=== PATIENT | male | born 1960 ===

== ENCOUNTER 2023-12-16 09:31 | Outpatient (REF) | payer MEDICAID, SELFPAY ==
--- NOTE | ~2023-12-16 | XR_ITS ---
EXAMINATION: XR KNEE, RIGHT CLINICAL INFORMATION: Pain in right knee. COMPARISON: None available. TECHNIQUE: Four views of the right knee. FINDINGS: Extensive atherosclerotic vascular calcifications. [id number] joint effusion. Mild narrowing of the lateral compartment. Tiny posterior patellar spurs. XR/XR knee RT 3V IMPRESSION: [id number] joint effusion. Mild degenerative changes.
== END 2023-12-16 09:32 | disposition home or self-care (01) ==
LOC: HO.HOSX 09:31
PROVIDERS: Visit Provider Orthopaedic Surgery
DX: M25.561 Pain in right knee (principal); Z79.899 Other long term (current) drug therapy
CPT/HCPCS: 73562; 99202

== ENCOUNTER 2023-12-16 12:57 | Outpatient (AMB) | payer MEDICAID, SELFPAY ==
--- NOTE | 2023-12-16 13:16 | A.OFFVIS_ITS ---
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 The patient did undergo right knee arthroscopic surgery in 2017. He got very good relief from that surgery initially. Patient states that he re-injured his knee approximately 1 year ago. He twisted his knee and had acute onset of pain. Since that time his symptoms have gotten worse in spite of continued non operative treatments. He did have 1 cortisone injection given into his right knee which gave him minimal relief. He has also done physical therapy exercises which aggravated his pain. The patient states that his right knee will give out several times per day. The patient also reports intermittent discomfort in his left knee. He states that at this point is left knee discomfort is tolerable to him. Allergies morphine Allergy (Intermediate, Verified 12/16/23 13:28) rapid Penicillins Allergy (Mild, Verified 12/16/23 13:28) Hives Medication List - Last Reconciled 12/16/23 by Bubba Escamilla MD [id number] ala 50-200-25 mg (Biktarvy) 1 tab PO DAILY empagliflozin (Jardiance) 25 mg PO DAILY empagliflozin (Jardiance) 10 mg PO DAILY fluconazole mg PO gabapentin mg PO glipizide ER 5 mg PO DAILY lisinopril 5 mg PO DAILY triamcinolone acetonide 0.025% topical valacyclovir 500 mg PO DAILY COUNTS INCLUDE 234 BEDS AT THE [facility] Surgical History Hx of heart surgery History of back surgery H/O shoulder surgery H/O right knee surgery (~2016) Social History Patient Tobacco Use Status: Never used Tobacco Current occupational status: unemployed Physical Exam Vital Signs: BMI result Body Mass Index 26.5 Const Other: Well-nourished well-developed very friendly male awake alert and oriented x3 in no acute distress Extrem Other: Bilateral lower extremity examination shows good capillary refill, no skin lesions noted, normal sensation light touch Right knee examination shows a minimal effusion, minimal crepitus with range of motion, tenderness along his medial joint line, positive Filomena's test, no instability Results Reviewed Results Reviewed: MRI of the patient's right knee taken at [facility] on 11/05/2023 shows a tear of the medial meniscus, no acute bony abnormalities Standing full weight-bearing x-rays of the patient's right knee show minimal joint space narrowing Assessment & Plan Assessment & Plan (1) Right knee pain: Code(s): M25.561 - Pain in right knee Plan Mr. Barnes presents with progressively worsening right knee pain mechanical symptoms due to a tear of his medial meniscus. I had a lengthy discussion with the patient regarding the treatment options. At this he failed continued non operative treatments. The risks and benefits of right knee arthroscopic surgery were discussed at length with the patient. The patient wishes to proceed with surgery. Surgery will most likely involve right knee diagnostic arthroscopy with arthroscopic partial medial meniscectomy. The patient does understand that he may not get 100% relief of his symptoms depending on the severity of his degenerative changes. The patient will be scheduled for next available date. He will follow-up as instructed. Feel free to call me at any time should questions regarding his orthopedic management arise. Thank you very much for asking me to see this very friendly gentleman. I spent 22 minutes in reviewing the patient's records and imaging studies, seeing the patient and documenting in the medical record. Orders: Orders XR knee RT 3V Today M25.561 - Pain in right knee Coding Level of Care Code New Pt Level 2 (83703) Diagnoses Right knee pain M25.561
[2023-12-16 13:23] VITALS: BMI 26.5
== END 2023-12-16 13:52 | disposition home or self-care (01) ==
PROVIDERS: PCP Family Medicine; Visit Provider Orthopaedic Surgery
DX: M25.561 Pain in right knee (principal)
CPT/HCPCS: 99202

== ENCOUNTER → 2024-01-11 07:30 | Outpatient (BNV) | payer MEDICAID, SELFPAY | PROVIDERS: PCP Family Medicine; Visit Provider Orthopaedic Surgery | DX: S83.241A Other tear of medial meniscus, current injury, right knee, initial encounter (principal); S83.281A Other tear of lateral meniscus, current injury, right knee, initial encounter | CPT/HCPCS: 29880 ==

== ENCOUNTER 2024-01-11 09:48 | Day surgery (SDC) | payer MEDICAID, SELFPAY ==
[2024-01-07 11:02] VITALS: BMI 26.5
--- NOTE | 2024-01-07 14:13 | P.CONAN_ITS ---
HPI - Anesthesia Eval Consult details Narrative: 63yo M for Right Knee Arthroscopy with partial medial meniscectomy Medically optimized per [facility] clinic note Follows [facility] Cardiology. Last office visit 05/2023. s/p CABG 2016. Hx MO with stents 2007 and 2011. Stable at 05/2023 officie visit, 1 year f/u. [facility] Active Problems Active Problems: All Active Problems Right knee pain (Acute) Past Medical History Medical History Anxiety and depression Osteoarthritis Elevated cholesterol HIV (human immunodeficiency virus infection) Myocardial infarction CAD (coronary artery disease) Diabetes HTN (hypertension) Surgical History Surgical History Hx of heart artery stent History of surgery History of lumbar fusion H/O colonoscopy History of total left knee replacement Hx of heart surgery History of back surgery H/O shoulder surgery H/O right knee surgery (~2016) Social History Social History Patient Tobacco Use Status: Former Tobacco user Quit Date: 6 years Tobacco use type: Cigarette Use of substances other than those prescribed or required for medical reasons: No Are you DNR?: No Advance Directives: No Advance Directives Information Provided: Yes Current occupational status: unemployed Meds Allergies Allergy/AdvReac Type Severity Reaction Status Date / Time azithromycin Allergy Intermediate Gastrointestinal Verified 01/07/24 10:53 Upset morphine Allergy Intermediate rapid Verified 12/16/23 13:28 Penicillins Allergy Intermediate Hives Verified 01/07/24 10:53 Active Medications: Current Medications Clindamycin Phosphate (Cleocin) 900 mg in 50 mls @ 50 mls/hr IV PREOP ONE Stop: 01/11/24 06:23 Home Medications ?Medication ?Instructions ?Recorded ?Confirmed ?Last Taken ?Type bictegravir 50 mg-emtricitabine 1 tab PO DAILY 12/16/23 01/07/24 Unknown History 200 mg-tenofovir alafenam 25 mg tablet (Biktarvy) empagliflozin 25 mg tablet 25 mg PO DAILY 12/16/23 01/07/24 01/08/24 History (Jardiance) glipizide 5 mg tablet, extended 5 mg PO DAILY 12/16/23 01/07/24 Unknown History release 24 hr lisinopril 5 mg tablet 5 mg PO BEDTIME 12/16/23 01/07/24 Unknown History triamcinolone acetonide 0.025 % 1 appl topical DAILY 12/16/23 01/07/24 Unknown History topical ointment valacyclovir 500 mg tablet 500 mg PO DAILY 12/16/23 01/11/24 Unknown History omeprazole 20 mg capsule,delayed 20 mg PO BID 01/07/24 01/07/24 Unknown History release pravastatin 80 mg tablet 80 mg PO DAILY 01/07/24 01/07/24 Unknown History Exam Height,Weight and Vital Signs: Height 5 ft 10 in Weight 83.915 kg Pertinent Lab Results Pertinent Lab Results: CBC and BMP 12/2023 from outside facility WNL Narrative Narrative: EKG 12/2023 SB @ 55 LAD Assessment and Plan Assessment Anesthesia Assessment: Chart Reviewed
[2024-01-11] VITALS (7 sets, daily range): BP systolic 93–132; BP diastolic 51–80; PULSE 48–57; RESP 14–18; TEMP 36.1–36.3; O2SAT 98–100; BMI 27.1
--- NOTE | 2024-01-11 07:16 | P.CONAN_ITS ---
[facility] Active Problems Active Problems: All Active Problems Right knee pain (Acute) Past Medical History Medical History Anxiety and depression Osteoarthritis Elevated cholesterol HIV (human immunodeficiency virus infection) Myocardial infarction CAD (coronary artery disease) Diabetes HTN (hypertension) Functional capacity: independent ambulation Family History Family history of problems with anesthesia: No Surgical History Surgical History Hx of heart artery stent History of surgery History of lumbar fusion H/O colonoscopy History of total left knee replacement Hx of heart surgery History of back surgery H/O shoulder surgery H/O right knee surgery (~2016) Social History Social History Patient Tobacco Use Status: Former Tobacco user Quit Date: 6 years Tobacco use type: Cigarette Use of substances other than those prescribed or required for medical reasons: No Are you DNR?: No Current occupational status: unemployed Meds Allergies Allergy/AdvReac Type Severity Reaction Status Date / Time azithromycin Allergy Intermediate Gastrointestinal Verified 01/07/24 10:53 Upset morphine Allergy Intermediate rapid Verified 12/16/23 13:28 Penicillins Allergy Intermediate Hives Verified 01/07/24 10:53 Active Medications: Current Medications Lactated Ringer's (Lr) 1,000 mls @ 100 mls/hr IVCONT .Q10H LOULOU Home Medications ?Medication ?Instructions ?Recorded ?Confirmed ?Last Taken ?Type bictegravir 50 mg-emtricitabine 1 tab PO DAILY 12/16/23 01/07/24 Unknown History 200 mg-tenofovir alafenam 25 mg tablet (Biktarvy) empagliflozin 25 mg tablet 25 mg PO DAILY 12/16/23 01/07/24 01/08/24 History (Jardiance) glipizide 5 mg tablet, extended 5 mg PO DAILY 12/16/23 01/07/24 Unknown History release 24 hr lisinopril 5 mg tablet 5 mg PO BEDTIME 12/16/23 01/07/24 Unknown History triamcinolone acetonide 0.025 % 1 appl topical DAILY 12/16/23 01/07/24 Unknown History topical ointment valacyclovir 500 mg tablet 500 mg PO DAILY 12/16/23 01/11/24 Unknown History omeprazole 20 mg capsule,delayed 20 mg PO BID 01/07/24 01/07/24 Unknown History release pravastatin 80 mg tablet 80 mg PO DAILY 01/07/24 01/07/24 Unknown History Exam Height,Weight and Vital Signs: Height 5 ft 10 in Weight 85.729 kg Last Vital Signs Temp 96.9 F 01/11/24 06:09 Resp 18 01/11/24 06:09 BP 132/80 01/11/24 06:09 Pulse Ox 98 01/11/24 06:09 O2 Del Method Room Air 01/11/24 06:09 Airway Mallampati Class: II TM Dist: >3cm Neck ROM: Full Heart: RRR Lungs: CTA Assessment and Plan Assessment Anesthesia Assessment: Anesthesia Plan Discussed Final Anesthetic Review Family History of Problems with Anesthesia: No ASA Class: III Final Preanesthetic Review: Meds/Allgs Chart Reviewed, Consent Obtained/Reviewed and Anes Risks/Benef Reviewed Patient Risk: Intermediate Procedure Risk: Low Anesthetic Plan Anesthetic Plan: GA Disposition: Standard PACU
[2024-01-11] MEDS: Insulin Lispro 100 UNIT/ML 3 ML VIAL SUBCUT (07:25)
--- NOTE | 2024-01-11 08:36 | P.BOP_ITS ---
Brief Operative Note Date of Service: 01/11/24 Pre-op diagnosis: Right knee medial meniscus tear, right knee degenerative joint disease Post-op diagnosis: other (Same as preoperative diagnoses as well as right knee lateral meniscus tear) Procedure: Right knee diagnostic arthroscopy with right knee arthroscopic partial medial and lateral meniscectomies, right knee arthroscopic chondroplasty of the undersurface of the patella as well as the medial femoral condyle Implants: none Surgeon: Bubba Escamilla MD Anesthesia: GLMA Was an Ladies Locker Room Attendant used for this Procedure?: No Estimated blood loss (mL): 10 Pathology: none sent Condition: stable Disposition: PACU
--- NOTE | 2024-01-11 08:36 | PC.NURSE ---
late entry. notified Dr. Betzaida Fonseca of elevated poc blood sugar. 5 units lispro insulin sc given to stacie as ordered in preop.
--- NOTE | 2024-01-11 08:37 | P.OP_ITS ---
Operative Note Operative Note Date of Service: 01/11/24 Narrative: After the patient was identified as Mo Barnes and his right knee was initialed by myself they were brought to the operating room where general anesthesia was induced by the anesthesiologist in routine fashion. Because of the patient's allergy to penicillins he was given 900 mg of IV clindamycin for infection prophylaxis. A formal time-out was completed. The patient's right lower extremity was prepped and draped in sterile fashion. Marcaine with epinephrine was injected into the planned incision sites as well as their right knee joint. A # 11 scalpel blade was used to make an anterolateral portal 1 cm proximal to the joint line and 1 cm lateral to the patellar tendon. Blunt trocar technique was used into the suprapatellar pouch with the knee in extension. Diagnostic arthroscopy showed multiple bands of thickened plica which would be excised at the end of the procedure. There were no loose bodies or abnormalities found in either the medial or lateral gutters. There were diffuse grades 1 and 2 degenerative changes of the undersurface of the patella as well as grade 1 degenerative changes of the trochlear groove. The patient's knee was flexed to 45 degrees and a valgus force was placed upon it. The medial compartment was entered. An anteromedial portal was made 1 cm proximal to the joint line and 1 cm medial to the patellar tendon. Probing of the medial meniscus showed a radial tear of the posterior horn. A partial medial meniscectomy was performed using the arthroscopic shaver. Following the partial meniscectomy the remainder of the meniscus tissue was stable. There were diff use grades 1 and 2 degenerative changes of the medial femoral condyle as well as diffuse grade 1 degenerative changes of the medial tibial plateau. The articular surface of the medial femoral condyle was made smooth using the arthroscopic shaver. The articular surface of the medial tibial plateau was already smooth so no chondroplasty was indicated. The patient's knee was then placed into a neutral position. There was no injury to the anterior cruciate ligament. The patient's knee was then placed into the figure of 4 position and the lateral compartment was entered. There were minimal degenerative changes of the lateral femoral condyle and lateral tibial plateau. There was a radial tear of the anterior horn of the lateral meniscus. A partial lateral meniscectomy was performed using the arthroscopic shaver. Following the partial meniscectomy the remainder of the meniscus tissue was stable. The patient's knee was once again brought into extension and the suprapatellar pouch was entered. The arthroscopic shaver and the ArthroCare Wand were used to excise the thickened bands of plica. The undersurface of the patella was then made smooth using the arthroscopic shaver. The articular surface of the trochlear groove was already smooth so no chondroplasty was indicated. The knee joint was irrigated and then drained. All arthroscopic instruments were removed. The 2 portals were closed with 3-0 nylon interrupted suture. The knee joint was injected with Marcaine. Dry sterile dressing and Benito bandages were placed over the patient's knee. The patient was awoken and extubated in the operating room. They were transferred to the recovery room in stable condition.
[2024-01-11 08:46] LABS: Glucose, Whole Blood 214 mg/dL (60-115)
[2024-01-11 10:57] LABS: Glucose, Whole Blood 242 mg/dL (60-115)
[2024-01-11 11:00] LABS: Glucose, Whole Blood 235 mg/dL (60-115)
--- NOTE | 2024-01-11 13:45 | HO.POSTANES ---
Post Anesthesia Evaluation Post Anesthesia Evaluation Date of Service: 01/11/24 Vital Signs: Vital Signs Temp Pulse Resp BP Pulse Ox O2 Del Method O2 Flow Rate 01/11/24 09:14 97.3 F 48 L 18 119/62 98 Room Air 01/11/24 08:59 50 16 98/58 L 99 Room Air 01/11/24 08:44 49 L 17 116/67 100 Simple Mask 6 01/11/24 08:39 56 18 97/56 L 99 Simple Mask 6 01/11/24 08:34 53 17 103/51 L 99 Simple Mask 6 01/11/24 08:29 97.4 F 57 14 93/56 L 98 Simple Mask 6 01/11/24 06:09 96.9 F 18 132/80 98 Room Air Anesthesia: General LMA Mental Status: Awake Pain Control: Satisfactory Nausea/Vomiting: None Hydration: Adequate Anesthesia-Related Issues: No Anes. Related Issues
== END 2024-01-11 09:53 | disposition home or self-care (01) ==
LOC: HO.SSS 09:48
PROVIDERS: PCP Family Medicine; Visit Provider Orthopaedic Surgery
PROC: (CPT 29870; principal; 2024-01-11 07:30)
DX: S83.241A Other tear of medial meniscus, current injury, right knee, initial encounter (principal); M17.11 Unilateral primary osteoarthritis, right knee; M67.51 Plica syndrome, right knee; M23.51 Chronic instability of knee, right knee; X50.1XXA Overexertion from prolonged static or awkward postures, initial encounter; Y93.9 Activity, unspecified; Y92.9 Unspecified place or not applicable; Y99.9 Unspecified external cause status; B20 Human immunodeficiency virus [HIV] disease; E11.9 Type 2 diabetes mellitus without complications; E78.00 Pure hypercholesterolemia, unspecified; Z79.84 Long term (current) use of oral hypoglycemic drugs; Z79.899 Other long term (current) drug therapy; Z88.0 Allergy status to penicillin; Z88.5 Allergy status to narcotic agent; Z98.890 Other specified postprocedural states; Z56.0 Unemployment, unspecified
CPT/HCPCS: 29880; 29876; 82947; J1100; J1885; J2250; J2405; J2704

== ENCOUNTER 2024-01-26 09:35 | Outpatient (AMB) | payer MEDICAID, SELFPAY ==
--- NOTE | 2024-01-26 09:36 | A.OFFVIS_ITS ---
Vital Signs 01/26/24 09:40 Height 5 ft 10 in Weight 183 lb BMI 26.3 Intake Visit Reasons: PO RT knee 01/11/24 Intake Note: Mo is a 63 year old male who presents today for a post op appointment s/p right knee 01/11/24 Patient reports he had a pulling sensation on the lateral aspect of the knee where the sutures are. Currently patient is not having pain or discomfort. Allergies azithromycin Allergy (Intermediate, Verified 01/26/24 09:41) Gastrointestinal Upset morphine Allergy (Intermediate, Verified 01/26/24 09:41) rapid Penicillins Allergy (Intermediate, Verified 01/26/24 09:41) Hives HPI HPI PO RT knee 01/11/24 DR: Details: 63-year-old male who presents in the office today 15 days status post right knee diagnostic arthroscopy with right knee arthroscopic partial medial and lateral meniscectomies, right knee arthroscopic chondroplasty of the undersurface of the patella as well as the medial femoral condyle, which was performed on 01/11/[address] Escamilla. While in the office today the patient reports he had a pulling sensation on the lateral aspect of the right knee where the sutures are. Denies any pain or discomfort while in the office today. [facility] Medical History Anxiety and depression Osteoarthritis Elevated cholesterol HIV (human immunodeficiency virus infection) Myocardial infarction CAD (coronary artery disease) Diabetes HTN (hypertension) Surgical History Hx of heart artery stent History of surgery History of lumbar fusion H/O colonoscopy History of total left knee replacement Hx of heart surgery History of back surgery H/O shoulder surgery H/O right knee surgery (~2016) Social History (Updated 01/26/24 @ 09:42 by Dannie Chris) Alcohol intake: never Substance Use Type: Other Substance Use Type Other:: Vape Current occupational status: unemployed Review of Systems Const All systems reviewed & are unremarkable except as noted in HPI and below Physical Exam Vital Signs: BMI result Body Mass Index 26.3 Const General: cooperative, healthy appearing and no acute distress Resp Effort & Inspection: normal respiratory effort and able to speak in complete sentences Cardio Rate: regular rate Peripheral pulses: Peripheral pulses 2+ throughout GI Palpation (GI): Soft to palpation Skin Lesions: no lesions Rashes: no rashes Extrem Other: Right knee: Normal to inspection. No ecchymosis, erythema, or joint effusion. Sutures intact. No surrounding erythema or drainage. No signs of infection. ROM is 0-110. NVI. Assessment & Plan Assessment & Plan (1) Right knee pain: Code(s): M25.561 - Pain in right knee Category: Medical Qualifiers: Chronicity: unspecified Qualified Code(s): M25.561 - Pain in right knee Plan Mr. Barnes is a 63-year-old male who presents in the office today 15 days status post right knee diagnostic arthroscopy with right knee arthroscopic partial medial and lateral meniscectomies, right knee arthroscopic chondroplasty of the undersurface of the patella as well as the medial femoral condyle, which was performed on 01/11/[address] Escamilla. While in the office today the patient reports he had a pulling sensation on the lateral aspect of the right knee where the sutures are. Denies any pain or discomfort while in the office today. Sutures were removed and steri-stripes were applied. The patient will resume back to normal activities as tolerated. Follow up will be PRN, or sooner if needed. Patient Instructions: Scribed by Linn Vega medical education specialist, for Tamara Lee PA-C on 01/26/2024 at 9:50 am, EST. Coding Level of Care Code Global (74340) Diagnoses Right knee pain, unspecified chronicity M25.561 Chronicity: unspecified
[2024-01-26 09:40] VITALS: BMI 26.3
== END 2024-01-26 09:53 | disposition home or self-care (01) ==
PROVIDERS: PCP Family Medicine; Visit Provider Physician Assistant
DX: M25.561 Pain in right knee (principal)
CPT/HCPCS: 99024

== ENCOUNTER → 2024-01-26 09:35 | Outpatient (BNVA) | payer MEDICAID, SELFPAY | PROVIDERS: PCP Family Medicine; Visit Provider Physician Assistant | DX: Z09 Encounter for follow-up examination after completed treatment for conditions other than malignant neoplasm (principal) | CPT/HCPCS: 99212 ==